=== PATIENT | male | born 1990 | race Caucasian/White ===

== ENCOUNTER → 2017-05-21 | Outpatient (CLI) | payer MEDICAID ==
[~2017-05-21] MED LIST: GADOBUTROL 10 ML VIAL IVP ONE
== END ==
LOC: FIMAGING 11:42
PROVIDERS: ATTEND Family Medicine
DX: E23.7 Disorder of pituitary gland, unspecified (principal); E66.01 Morbid (severe) obesity due to excess calories; E29.1 Testicular hypofunction; G47.30 Sleep apnea, unspecified
CPT/HCPCS: A9585